=== PATIENT | female | born 1955 | race Caucasian/White ===

== ENCOUNTER 2016-11-24 07:11 | Emergency (ER) | payer MEDICARE, MEDICAID ==
[~2016-11-24] VITALS: Ht 149.9 cm; Wt 55.0 kg
[~2016-11-24 07:11] MED LIST: 1-ME1LIQ PO; ALBU8I INH; ATOR80TA PO; BUPR150T5 PO; BUPR1TAB29 PO; CHOL50006 PO; IBUP600T26 PO; INDO25 PO; MIRT1TAB PO; PRIL20CA9 PO; SPIRCAP INH; WELL150T PO
[2016-11-24 07:15] VITALS: BP 142/76; PULSE 104; RESP 20; TEMP 97.6; O2SAT 98
[2016-11-24] MEDS: RESP: ALBUTEROL 2.5 MG/IPRATROPIUM 0.5 MG NEB (SCH) INH ×3 (07:45→07:59)
[2016-11-24] MEDS ORDERED: methylPREDNISolone SOD SUCC 125 MG/2 ML VIAL IVP ONE (07:45)
[2016-11-24] MEDS ORDERED: MORPHINE SULFATE 4 MG/ML INJ IV PUSH ONE (07:45)
--- NOTE | 2016-11-24 07:48 | PD ---
HPI Chief Complaint: Pain: Acute or Chronic Time Seen by Provider: 07:27 Travel History International Travel<30 days: No Contact w/Intl Traveler<30days: No Traveled to known affect area: No History of Present Illness HPI 61yo F with PMH of COPD, anxiety, arthritis, depression, lymphoma presents to the ED with c/o right shoulder pain for about 1 month. States she was seen in [facility] and had CT scan for which showed lung nodule and she has referral for oncology. Pt also has referral for orthopedic surgery. Right shoulder pain is from right scapula down to right shoulder and arm. Pain is worst with movement. Pt was given hydrocodone and states it does not work. Denies any fever, redness, trauma, focal weakness or numbness. Pt also states she feels sob. She has been sob for weeks. Has chronic cough and is a cig smoker. Denies any chest pain, n/v, abdominal pain. PFSH Past Medical History Cancer: Yes (LYMPHOMA) Cardiovascular Problems: No High Cholesterol: Yes Diabetes: No Diminished Hearing: No Endocrine: No Gastrointestinal Disorders: Yes (ACID REFLUX) Genitourinary: No Hepatitis: No Hiatal Hernia: No Hypertension: Yes Immune Disorder: No Medical other: Yes (ELEVATED CHOLESTEROL) Musculoskeletal: Yes (ARTHRITIS) Psychiatric: Yes (ANXIETY) Reproductive: No Respiratory: Yes (UNKNOWN; USES ALBUTEROL AND SPIRIVA) Integumentary: Yes (CYSTS) Thyroid Disease: No ?: Not Past Surgical History Abdominal Surgery: Yes (LT GROIN ABSCESS) AICD: No Joint Replacement: No Pacemaker: No Thoracic Surgery: Yes (BILAT. BREAST ABSCESS, PORT PLACEMENT AND REMOVAL) Other Surgery: Yes (IN-FUSE-A -PORT, CYST REMOVAL UNDER RIGHT BREAST.) Family History Family Hypercholesterolemia: Yes Social History Alcohol Use: No Tobacco Use: Yes Substance Use: No Allergies-Medications (Allergen,Severity, Reaction): Coded Allergies: aspirin (Unverified Allergy, Severe, Anaphylaxis, 11/24/16) Reported Meds & Prescriptions Reported Meds & Active Scripts Active Lortab (Hydrocodone-Acetaminophen) 5-325 Mg Tab 1 Tab PO Q6H PRN Review of Systems Except as stated in HPI: all other systems reviewed are Neg Physical Exam Narrative GENERAL: 61yo F in mild distress. SKIN: Focused skin assessment warm/dry. HEAD: Atraumatic. Normocephalic. NECK: Trachea midline. No JVD. CARDIOVASCULAR: Regular rate and rhythm. No murmur appreciated. RESPIRATORY: No accessory muscle use. Coarse breath sounds bilaterally. Breath sounds equal bilaterally. GASTROINTESTINAL: Abdomen soft, non-tender, nondistended. No rebound tenderness or guarding. MUSCULOSKELETAL: RUE: No erythema, edema, open wounds. +TTP medial right scapula. TTP right shoulder. Sensation intact. Radial pulse 2+. NEUROLOGICAL: Awake and alert. No obvious cranial nerve deficits. Motor grossly within normal limits. Normal speech. PSYCHIATRIC: Appropriate mood and affect; insight and judgment normal. Data Data Last Documented VS Vital Signs Date Time Temp Pulse Resp B/P (MAP) Pulse Ox O2 Delivery O2 Flow Rate FiO2 11/24/16 12:31 92 18 144/69 (94) 97 11/24/16 09:11 Room Air 11/24/16 07:15 97.6 Orders Orders Complete Blood Count With Diff (11/24/16 07:40) Basic Metabolic Panel (Bmp) (11/24/16 07:40) Act Partial Throm Time (Ptt) (11/24/16 07:40) Prothrombin Time / Inr (Pt) (11/24/16 07:40) Troponin I (11/24/16 07:40) Iv Access Insert/Monitor (11/24/16 07:40) Electrocardiogram (11/24/16 07:40) Ecg Monitoring (11/24/16 07:40) Oximetry (11/24/16 07:40) Chest, Single Ap (11/24/16 07:40) Methylprednisolone So Succ Inj (Solumedr (11/24/16 07:45) Albuterol-Ipratropium Neb (Duoneb Neb) (11/24/16 07:45) Morphine Inj (Morphine Inj) (11/24/16 07:45) Shoulder, Limited(2vws) (11/24/16 ) Ct Pulmonary Angiogram (11/24/16 ) Labs Laboratory Tests Test 11/24/16 08:30 White Blood Count 9.0 TH/MM3 Red Blood Count 4.41 MIL/MM3 Hemoglobin 11.9 GM/DL Hematocrit 35.0 % Mean Corpuscular Volume 79.3 FL Mean Corpuscular Hemoglobin 27.1 PG Mean Corpuscular Hemoglobin Concent 34.2 % Red Cell Distribution Width 15.3 % Platelet Count 267 TH/MM3 Mean Platelet Volume 8.2 FL Neutrophils (%) (Auto) 67.5 % Lymphocytes (%) (Auto) 20.3 % Monocytes (%) (Auto) 7.4 % Eosinophils (%) (Auto) 4.4 % Basophils (%) (Auto) 0.4 % Neutrophils # (Auto) 6.1 TH/MM3 Lymphocytes # (Auto) 1.8 TH/MM3 Monocytes # (Auto) 0.7 TH/MM3 Eosinophils # (Auto) 0.4 TH/MM3 Basophils # (Auto) 0.0 TH/MM3 CBC Comment DIFF FINAL Differential Comment Prothrombin Time 11.4 SEC Prothromb Time International Ratio 1.0 RATIO Activated Partial Thromboplast Time 25.3 SEC Blood Urea Nitrogen 14 MG/DL Creatinine 0.61 MG/DL Random Glucose 100 MG/DL Calcium Level 9.2 MG/DL Sodium Level 136 MEQ/L Potassium Level 3.5 MEQ/L Chloride Level 104 MEQ/L Carbon Dioxide Level 24.7 MEQ/L Anion Gap 7 MEQ/L Estimat Glomerular Filtration Rate 99 ML/MIN Troponin I LESS THAN 0.02 NG/ML MDM Medical Decision Making Medical Screen Exam Complete: Yes Emergency Medical Condition: Yes Interpretation(s) EKG: NSR 97bpm. RBBB. Differential Diagnosis Right shoulder pain: Musculoskeletal vs. arthritis vs. rotator cuff injury vs. fracture vs. radiculopathy SOB: Anxiety vs. COPD exacerbation vs. Pneumonia vs. PE Narrative Course 61yo F with right shoulder pain for over 1 month. Pt was seen at [facility] end of October and had CT scan that showed pulmonary nodule and currently has referral to orthopedic surgery and oncology. Pt is here for persistent pain. No signs of infection or trauma. Xray right shoulder showed no acute fracture. High riding shoulder which can be seen with chronic rotator cuff tear. Pt informed of this and instructed to follow up with orthopedic surgery as outpatient. Pt also with sob that seems chronic. CXR showed left upper lobe mass and pt states she had a mass and thought it was on the right side. CT chest recommended and CT angio ordered since we are also concern about PE in setting of possible malignancy. Labs reviewed, no leukocytosis. Troponin negative. BMP unremarkable. Pt given duonebs x3, methylprednisolone 60mg IV, morphine 4mg IV. Pt reevaluated at bedside and states her sob and right shoulder pain has improved. She feels better and no longer sob. Still with some expiratory coarse sounds bilaterally which is likely chronic. CT angio showed no PE. Left upper lobe mass measures 4.9cm. Pt has oncology referral and waiting her her insurance card to follow up. Will give our oncologist's name as well. Pt is well appearing and has referrals for oncology and orthopedic. Return precautions given. Diagnosis Primary Impression: Lung mass Referrals: Alberto Garcia MD call for appointment Lung mass suspicious for malignancy Erika Diaz MD call for appointment Lung mass suspicious for malignancy Patient Instructions: General Instructions Departure Forms: Tests/Procedures Additional Instructions: Please follow up with your oncologist or our oncologist at the earliest time possible. Please follow up with pulmonary for possible lung biopsy. Please also follow up with orthopedic for your shoulder pain. Return to the ED if symptoms worsen. Med/Other Pt SpecificInfo: Prescription(s) given Scripts Hydrocodone-Acetaminophen (Lortab) 5-325 Mg Tab 1 TAB PO Q6H Y for PAIN, #12 TAB 0 Refills Prov: Candace Francisco DO 11/24/16 Disposition: 01 DISCHARGE HOME Condition: Stable Candace Francisco DO Nov 24, 2016 07:48
--- NOTE | 2016-11-24 08:30 | RADRPT ---
EXAM DATE/TIME: 11/24/2016 07:58 [facility] COMPARISON: No previous studies available for comparison. INDICATIONS : Short of Breath MEDICAL HISTORY : Lymphoma. SURGICAL HISTORY : Infusaport, Cyst removal under right breast ENCOUNTER: Initial ACUITY: 1 day PAIN SCORE: 0/10 LOCATION: Bilateral chest FINDINGS: A single view of the chest demonstrates left upper lobe right lung clear. Heart normal in size. No co nsolidation or pleural effusion. Osseous structures are intact. CONCLUSION: Left upper lobe mass. CT chest recommended. Karel Lambert MD on November 24, 2016 at 8:27 Board Certified Radiologist. This report was verified electronically.
--- NOTE | 2016-11-24 08:31 | RADRPT ---
EXAM DATE/TIME: 11/24/2016 07:59 [facility] COMPARISON: No previous studies available for comparison. INDICATIONS : Right shoulder pain, no trauma per patient MEDICAL HISTORY : Lymphoma. SURGICAL HISTORY : Infusaport, cyst removal under right breast ENCOUNTER: Initial ACUITY: 1 day PAIN SCORE: 6/10 LOCATION: Right Shoulder FINDINGS: Two view examination of the right shoulder demonstrates no evidence of fracture or dislocation. There is a high riding right shoulder. Degenerative changes are seen. Surgical clips right axilla. CONCLUSION: No acute fracture. High riding right shoulder which can be seen with chronic rotator cuff tear. Karel Lambert MD on November 24, 2016 at 8:29 Board Certified Radiologist. This report was verified electronically.
[2016-11-24 08:52] LABS: AUTOMATED NEUTROPHIL # 6.1 TH/MM3 (1.8-7.7); BASOPHIL % 0.4 % (0.0-2.0); EOSINOPHIL # 0.4 TH/MM3 (0-0.4); EOSINOPHIL % 4.4 % (0.0-4.0); HEMO FLAGS DIFF FINAL; LYMPH % 20.3 % (9.0-44.0); LYMPHOCYTE # 1.8 TH/MM3 (1.0-4.8); MEAN CELL VOLUME 79.3 FL (80.0-100.0); MEAN CORPUSCULAR HEMOGLOBIN 27.1 PG (27.0-34.0); MEAN CORPUSCULAR HGB CONC 34.2 % (32.0-36.0); MONO % 7.4 % (0.0-8.0); NEUT % 67.5 % (16.0-70.0); PLATELET COUNT 267 TH/MM3 (150-450); RED BLOOD COUNT 4.41 MIL/MM3 (4.00-5.30); RED CELL DISTRIBUTION WIDTH 15.3 % (11.6-17.2)
[2016-11-24 09:00] LABS: APTT (PATIENT) 25.3 SEC (24.3-30.1); PROTHROMBIN TIME - PATIENT 11.4 SEC (9.8-11.6)
[2016-11-24 09:11] VITALS: BP 147/68; PULSE 100; RESP 18; O2SAT 97
[2016-11-24 09:13] LABS: ANION GAP 7 MEQ/L (5-15); BICARBONATE 24.7 MEQ/L (21.0-32.0); BLOOD UREA NITROGEN 14 MG/DL (7-18); CHLORIDE 104 MEQ/L (98-107); GLOMERULAR FILTRATION RATE 99 ML/MIN (>89); POTASSIUM 3.5 MEQ/L (3.5-5.1); SODIUM (NA) 136 MEQ/L (136-145)
[2016-11-24 09:55] VITALS: RESP 18
[2016-11-24] MEDS ORDERED: IOHEXOL 350 MG/ML 10 ML VIAL (for RAD DIAG) IVCONTRAST ONE (10:03)
--- NOTE | 2016-11-24 10:31 | RADRPT ---
EXAM DATE/TIME: 11/24/2016 10:03 [facility] COMPARISON: No previous studies available for comparison. INDICATIONS : Shortness of breath and chest pain today. IV CONTRAST: 70 cc Omnipaque 350 (iohexol) IV RADIATION DOSE: 5.07 CTDIvol (mGy) MEDICAL HISTORY : Lymphoma. Hypertension. bilateral abscess SURGICAL HISTORY : None. ENCOUNTER: Initial ACUITY: 1 day PAIN SCALE: 4/10 LOCATION: Bilateral chest TECHNIQUE: Volumetric scanning of the chest was performed using a pulmonary embolism protocol MIP images were re constructed. Using automated exposure control and adjustment of the mA and/or kV according to patien t size, radiation dose was kept as low as reasonably achievable to obtain optimal diagnostic quality images. DICOM format image data is available electronically for review and comparison. Follow-up recommendations for detected pulmonary nodules are based at a minimum on nodule size and pa tient risk factors according to Fleischner Society Guidelines. FINDINGS: PULMONARY ARTERIES: No filling defects are seen in the pulmonary arteries through the segmental level. LUNGS: There is left upper lobe mass measuring 4.8 x 4.9 cm. Scattered subcentimeter pulmonary nodules measu ring 2-6 mm in the upper lower lobes bilaterally, also including the right middle lobe.PLEURAE: There is no pleural thickening or pleural effusion. MEDIASTINUM: There is good visualization of the great vessels of the middle mediastinum. Bilateral hilar adenopath y. There is subcarinal adenopathy measuring 2 cm in thickness. Right hilar adenopathy measuring 2.5 c m. There is also adenopathy in the right paratracheal region measuring 2.0 cm. MUSCULOSKELETAL: Within normal limits for patient age. MISCELLANEOUS: The visualized upper abdominal organs demonstrate no acute abnormality. Right axillary adenopathy michel sures 1.6 cm. Clips are seen in the right axilla. CONCLUSION: 1. Left upper lobe mass measures 4.9 cm. This is amenable to bronchoscopy or percutaneous CT-guided b iopsy. 2. Prominent mediastinal and bilateral hilar adenopathy. 3. A few scattered subcentimeter pulmonary nodules bilaterally measuring 3-6 mm in size. Karel Lambert MD on November 24, 2016 at 10:23 Board Certified Radiologist. This report was verified electronically.
[2016-11-24] MEDS ORDERED: HYDR-3533 PO (12:27)
[2016-11-24 12:31] VITALS: BP 144/69
--- NOTE | 2016-11-25 15:58 | EKG ---
Date Performed: 11/24/2016 Time Performed: 08:38:49 PTAGE: 61 years EKG: Sinus rhythm INDETERMINATE AXIS RIGHT BUNDLE BRANCH BLOCK Compared to prior tracing no significant change ABNORMA L ECG PREVIOUS TRACING : 08/06/2014 09.48 DOCTOR: Adrian Smith Interpretating Date/Time 11/25/2016 15:58:07
== END 2016-11-24 12:32 | disposition home or self-care (01) ==
LOC: NEPE 07:11
DX: R91.8 Other nonspecific abnormal finding of lung field (principal); R06.02 Shortness of breath; R05 Cough; R94.31 Abnormal electrocardiogram [ECG] [EKG]; M25.511 Pain in right shoulder; I10 Essential (primary) hypertension; E78.00 Pure hypercholesterolemia, unspecified; Z72.0 Tobacco use; Z87.09 Personal history of other diseases of the respiratory system; Z86.59 Personal history of other mental and behavioral disorders; Z87.39 Personal history of other diseases of the musculoskeletal system and connective tissue; Z85.72 Personal history of non-Hodgkin lymphomas; Z87.19 Personal history of other diseases of the digestive system
CPT/HCPCS: 71010; 71275; 73030; 80048; 84484; 85025; 85610; 85730; 93005; 94640; 94664; 96374; 96375; 99285; J2270; J2930; Q9967